=== PATIENT | female | born 1945 | race African-American/Black ===

== ENCOUNTER 2017-02-18 14:00 | Inpatient (IN) | payer MEDICARE, MEDICAID ==
[~2017-02-18] VITALS: Ht 152.4 cm; Wt 73.5 kg
[~2017-02-18 14:00] MED LIST: IOHEXOL-300 100 ML BOTTLE ONE; SODIUM CHLORIDE 0.9% 10ML VIAL ONE
[2017-02-18] MEDS ORDERED: METO-293 PO (14:10)
[2017-02-18] MEDS ORDERED: SIMV20TA6 PO (14:10)
[2017-02-18] MEDS ORDERED: OMEP20TA80 PO (14:10)
[2017-02-18] MEDS ORDERED: NAPR-681 PO (14:10)
[2017-02-18] MEDS ORDERED: PANTOPRAZOLE SODIUM 40 MG/VIAL IV STA (14:47)
[2017-02-18] MEDS ORDERED: SODIUM CHLORIDE 0.9% 1,000 ML IV ONE (14:47)
[2017-02-18] MEDS ORDERED: ONDANSETRON HCL 4MG/2ML VIAL IV ONE ×3 (15:00→20:00)
[2017-02-18 15:16] LABS: CLARITY URINE CLEAR (CLEAR); COLOR URINE YELLOW (YELLOW); GLUCOSE URINE NEGATIVE (NEGATIVE); KETONES URINE NEGATIVE (NEGATIVE); LEUKOCYTE ESTERASE URINE NEGATIVE (NEGATIVE); NITRITE URINE NEGATIVE (NEGATIVE); OCCULT BLOOD URINE 1+ (NEGATIVE); PROTEIN URINE NEGATIVE (NEGATIVE); SPECIFIC GRAVITY URINE 1.014 (1.005-1.030); UROBILINOGEN URINE 0.2 E.U./dL (0.2-1.0)
[2017-02-18 15:18] LABS: BASOPHILS % 0.1 % (0.0-2.0); EOSINOPHILS % 0.1 % (0.0-5.0); HEMATOCRIT. 43.8 % (36.0-48.0); HEMOGLOBIN. 14.8 g/dL (12.0-16.0); LYMPHOCYTES % 8.5 % (20.0-50.0); MEAN CORPUSCULAR HEMOGLOBIN 30.1 pg (28.0-32.0); MEAN CORPUSCULAR VOLUME 88.9 fL (81.0-99.0); MEAN PLATELET VOLUME 9.5 fl (7.4-10.4); MONOCYTES % 5.3 % (2.0-8.0); PLATELET 191 x1000/uL (130-400); RED BLOOD CELL COUNT 4.93 mill/uL (4.2-5.4); RED CELL DISTRIBUTION WIDTH 12.9 % (11.6-14.6)
[2017-02-18 15:24] LABS: PROTHROMBIN TIME 10.8 sec
[2017-02-18 15:27] LABS: CARBON DIOXIDE 28 mEq/L (21-32); CHLORIDE 103 mEq/L (98-107)
[2017-02-18] MEDS ORDERED: CEFTRIAXONE 2 G PREMIX 50 ML IV NR (17:00)
[2017-02-18] MEDS ORDERED: METRONIDAZOLE 500 MG PREMIX 100 ML IV NR (17:00)
[2017-02-18] MEDS ORDERED: MORPHINE SULFATE 4 MG/ML CPJ (NOT FOR IM USE) IV ONE ×2 (18:30→20:00)
[2017-02-18 21:10] VITALS: BP 143/83
[2017-02-18 21:35] VITALS: BP 143/83
[2017-02-19] VITALS: BP 148/82
[2017-02-19] MEDS ORDERED: ONDANSETRON HCL 4MG/2ML VIAL IV PRN (00:30)
[2017-02-19] MEDS ORDERED: MORPHINE SULFATE 4 MG/ML CPJ (NOT FOR IM USE) IV PRN (00:30)
[2017-02-19] MEDS ORDERED: HYDROMORPHONE HCL/PF 2MG/ML CPJ IM PRN (00:30)
[2017-02-19] MEDS: DEXT 5%/0.45% NACL 1000ML 1,000 ML IV SCH ×2 (01:29→10:16)
[2017-02-19 04:00] VITALS: BP 94/62
[2017-02-19 07:10] LABS: BASOPHILS % 0.1 % (0.0-2.0); EOSINOPHILS % 0.1 % (0.0-5.0); HEMATOCRIT. 38.2 % (36.0-48.0); HEMOGLOBIN. 12.7 g/dL (12.0-16.0); MEAN CORPUSCULAR HEMOGLOBIN 30.3 pg (28.0-32.0); MEAN CORPUSCULAR VOLUME 90.9 fL (81.0-99.0); MEAN PLATELET VOLUME 9.8 fl (7.4-10.4); MONOCYTES % 6.6 % (2.0-8.0); NEUTROPHILS % 85.2 % (40.0-76.0); PLATELET 194 x1000/uL (130-400); RED CELL DISTRIBUTION WIDTH 13.2 % (11.6-14.6)
[2017-02-19 07:35] LABS: CARBON DIOXIDE 28 mEq/L (21-32); CHLORIDE 106 mEq/L (98-107)
[2017-02-19] MEDS: METRONIDAZOLE 500 MG PREMIX 100 ML IV SCH ×3 (07:55→17:06)
[2017-02-19 08:00] VITALS: BP 96/59
[2017-02-19 12:00] VITALS: BP 121/70
[2017-02-19] MEDS ORDERED: HYDROMORPHONE HCL/PF 2MG/ML CPJ IV PRN (15:00)
[2017-02-19 16:00] VITALS: BP 110/62
[2017-02-19] MEDS: CEFTRIAXONE 1 G PREMIX 50 ML IV SCH (16:14)
[2017-02-19] MEDS ORDERED: SORBITOL 70% SOLN 30ML PO SCH (18:00)
[2017-02-19 20:00] VITALS: BP 119/73
[2017-02-20] VITALS: BP 122/70
[2017-02-20] MEDS: METRONIDAZOLE 500 MG PREMIX 100 ML IV SCH ×5 (01:55→23:40)
[2017-02-20] MEDS: DEXT 5%/0.45% NACL 1000ML 1,000 ML IV SCH ×3 (01:55→17:35)
[2017-02-20 04:00] VITALS: BP 138/74
[2017-02-20] MEDS ORDERED: SORBITOL 70% SOLN 30ML PO SCH (06:00)
[2017-02-20 06:53] LABS: INR 1.1; PROTHROMBIN TIME 11.6 sec
[2017-02-20 07:07] LABS: BASOPHILS % 0.4 % (0.0-2.0); EOSINOPHILS % 1.7 % (0.0-5.0); HEMATOCRIT. 35.2 % (36.0-48.0); HEMOGLOBIN. 11.9 g/dL (12.0-16.0); MEAN CORPUSCULAR HEMOGLOBIN 30.4 pg (28.0-32.0); MEAN CORPUSCULAR VOLUME 89.9 fL (81.0-99.0); MEAN PLATELET VOLUME 9.3 fl (7.4-10.4); MONOCYTES % 6.8 % (2.0-8.0); NEUTROPHILS % 71.1 % (40.0-76.0); PLATELET 169 x1000/uL (130-400); RED BLOOD CELL COUNT 3.91 mill/uL (4.2-5.4); RED CELL DISTRIBUTION WIDTH 13.3 % (11.6-14.6)
[2017-02-20 07:17] LABS: CARBON DIOXIDE 28 mEq/L (21-32); CHLORIDE 106 mEq/L (98-107)
[2017-02-20 08:00] VITALS: BP 130/73
[2017-02-20 12:00] VITALS: BP 119/73
[2017-02-20] MEDS ORDERED: SODIUM CHLORIDE 0.9% 10ML VIAL ONE (13:44)
[2017-02-20] MEDS ORDERED: MIDAZOLAM HCL 5 MG/5 ML VIAL ONE (15:01)
[2017-02-20] MEDS ORDERED: SIMETHICONE 40 MG/0.6 ML 30ML ONE (15:01)
[2017-02-20] MEDS ORDERED: FENTANYL CITRATE/PF 50MCG/ML 2ML VIAL ONE (15:01)
[2017-02-20] MEDS ORDERED: MIDAZOLAM HCL 5 MG/5 ML VIAL IV PRN (15:02)
[2017-02-20] MEDS ORDERED: FENTANYL CITRATE/PF 50MCG/ML 2ML VIAL IV PRN (15:04)
[2017-02-20 16:00] VITALS: BP 123/82
[2017-02-20] MEDS: CEFTRIAXONE 1 G PREMIX 50 ML IV SCH (17:36)
[2017-02-20 20:00] VITALS: BP 128/80
[2017-02-21] VITALS: BP 114/71
[2017-02-21 04:00] VITALS: BP 102/58
[2017-02-21] MEDS: METRONIDAZOLE 500 MG PREMIX 100 ML IV SCH ×5 (06:43→23:49)
[2017-02-21 06:46] LABS: BASOPHILS % 0.6 % (0.0-2.0); EOSINOPHILS % 3.3 % (0.0-5.0); HEMATOCRIT. 35.6 % (36.0-48.0); HEMOGLOBIN. 12.1 g/dL (12.0-16.0); LYMPHOCYTES % 25.7 % (20.0-50.0); MEAN CORPUSCULAR HEMOGLOBIN 30.4 pg (28.0-32.0); MEAN CORPUSCULAR VOLUME 89.7 fL (81.0-99.0); MEAN PLATELET VOLUME 9.6 fl (7.4-10.4); MONOCYTES % 7.6 % (2.0-8.0); NEUTROPHILS % 62.8 % (40.0-76.0); PLATELET 166 x1000/uL (130-400); RED BLOOD CELL COUNT 3.96 mill/uL (4.2-5.4)
[2017-02-21 07:19] LABS: CARBON DIOXIDE 25 mEq/L (21-32); CHLORIDE 107 mEq/L (98-107); PHOSPHORUS 2.4 mg/dL (2.5-4.9)
[2017-02-21 08:00] VITALS: BP 119/65
[2017-02-21 12:00] VITALS: BP 126/80
[2017-02-21 12:21] LABS: SACCHAROMYCES CEREVISIAE IGG <20.0 Units (0.0-24.9); SACCHAROMYCES CEREVISIAE IGM <20.0 Units (0.0-24.9)
[2017-02-21 13:11] LABS: ATYPICAL pANCA <1:20 titer (Neg:<1:20)
[2017-02-21] MEDS: POTASSIUM CHLORIDE 20MEQ/PACKET PO SCH ×2 (13:45→17:12)
[2017-02-21 16:00] VITALS: BP 121/75
[2017-02-21] MEDS: CEFTRIAXONE 1 G PREMIX 50 ML IV SCH (17:08)
[2017-02-21 20:00] VITALS: BP 126/77
[2017-02-22] VITALS: BP 125/79
[2017-02-22 04:00] VITALS: BP 143/69
[2017-02-22] MEDS: METRONIDAZOLE 500 MG PREMIX 100 ML IV SCH (05:51)
[2017-02-22] MEDS: DEXT 5%/0.45% NACL 1000ML 1,000 ML IV SCH (05:52)
[2017-02-22 06:09] LABS: BASOPHILS % 0.6 % (0.0-2.0); EOSINOPHILS % 4.9 % (0.0-5.0); HEMOGLOBIN. 12.5 g/dL (12.0-16.0); LYMPHOCYTES % 27.4 % (20.0-50.0); MEAN CORPUSCULAR HEMOGLOBIN 30.8 pg (28.0-32.0); MEAN CORPUSCULAR VOLUME 88.7 fL (81.0-99.0); MEAN PLATELET VOLUME 9.6 fl (7.4-10.4); MONOCYTES % 11.3 % (2.0-8.0); NEUTROPHILS % 55.8 % (40.0-76.0); PLATELET 174 x1000/uL (130-400); RED BLOOD CELL COUNT 4.06 mill/uL (4.2-5.4)
[2017-02-22 07:53] LABS: CHLORIDE 106 mEq/L (98-107)
[2017-02-22 08:00] VITALS: BP 105/64
[2017-02-22 08:03] LABS: CARBON DIOXIDE 25 mEq/L (21-32)
[2017-02-22] MEDS: POTASSIUM CHLORIDE 20MEQ/PACKET PO SCH (09:26)
[2017-02-22 11:21] VITALS: BP 105/64
== END 2017-02-22 11:55 | disposition home or self-care (01) | DRG 378 ==
LOC: ER 14:29 → 6EST 17:01 → EDBEDREQ 17:07 → EDBEDREQSVC 17:08 → ENRESERV 18:47
PROVIDERS: ADMIT Internal Medicine; ATTEND Internal Medicine
PROC: 0DBL8ZX Excision of Transverse Colon, Via Natural or Artificial Opening Endoscopic, Diagnostic (ICD-10-PCS; principal; 2017-02-20 15:00)
DX: K92.2 Gastrointestinal hemorrhage, unspecified (principal); K55.9 Vascular disorder of intestine, unspecified; K63.3 Ulcer of intestine; K52.9 Noninfective gastroenteritis and colitis, unspecified; K76.0 Fatty (change of) liver, not elsewhere classified; K21.9 Gastro-esophageal reflux disease without esophagitis; K59.00 Constipation, unspecified; M19.90 Unspecified osteoarthritis, unspecified site; Z79.899 Other long term (current) drug therapy; Z90.710 Acquired absence of both cervix and uterus; Z88.8 Allergy status to other drugs, medicaments and biological substances; Z90.49 Acquired absence of other specified parts of digestive tract
CPT/HCPCS: 36415; 71010; 74000; 74177; 80048; 80053; 81001; 82040; 82270; 83605; 83690; 83735; 84100; 85025; 85610; 85651; 85730; 86256; 86671; 86850; 86900; 87015; 87040; 87045; 87427; 87449; 87493; 88305; 89055; 93005; 96365; 96366; 96367; 96375; 96376; 97162; 99285; A4216; A4565; C1893; C9113; J0696; J1170; J2250; J2270; J2405; J3010; J3490; J7030; Q9967